=== PATIENT | male | born 1950 | race Two or more races ===

== ENCOUNTER 2016-11-11 06:10 | Day surgery (SDC) | payer OTHER, MEDICAID ==
[~2016-11-11] VITALS: Ht 167.6 cm; Wt 79.8 kg
[2016-11-11 06:47] VITALS: BP 174/78
[2016-11-11 07:04] LABS: CALCIUM 8.4 mg/dL (8.5-10.1); POTASSIUM SERUM 5.1 mmol/L (3.5-5.1)
[2016-11-11 07:07] LABS: CREATININE SERUM 14.5 mg/dL (0.7-1.3)
[2016-11-11 07:15] LABS: BASOPHIL % 0.9 % (0-2); PLATELET COUNT 288 x10^3mcL (130-400)
[2016-11-11 07:16] LABS: RED CELL DISTRIBUTION WIDTH 15.6 % (11.5-14.5)
[2016-11-11 12:30] VITALS: BP 134/65
== END 2016-11-11 11:45 | disposition home or self-care (01) ==
LOC: DS 06:10 → OR 07:30 → DS 11:45
PROVIDERS: Surgery
PROC: B5181ZA Fluoroscopy of Superior Vena Cava using Low Osmolar Contrast, Guidance (ICD-10-PCS; 2016-11-11)
PROC: 031 Upper Arteries, Bypass (ICD-10-PCS; principal; 2016-11-11 07:30)
DX: N18.6 End stage renal disease (principal); E11.9 Type 2 diabetes mellitus without complications; I10 Essential (primary) hypertension
CPT/HCPCS: 82962; A4301; C1768; J0690; J1170; J1644; J2001; J2250; J2405; J2704; J3010; J3490; J7030; Q0092

== ENCOUNTER 2018-11-22 08:16 | Day surgery (SDC) | payer OTHER, MEDICAID ==
[~2018-11-22] VITALS: Ht 167.6 cm; Wt 77.1 kg
[2018-11-22 09:07] VITALS: BP 183/76
[2018-11-22 09:24] LABS: BASOPHIL % 0.7 % (0-2); PLATELET COUNT 189 x10^3mcL (130-400)
[2018-11-22 09:25] LABS: RED CELL DISTRIBUTION WIDTH 14.6 % (11.5-14.5)
[2018-11-22 09:35] LABS: ALBUMIN 3.8 g/dL (3.4-5.0); BILIRUBIN TOTAL 0.52 mg/dL (0.20-1.00); CALCIUM 10.1 mg/dL (8.5-10.1); CARBON DIOXIDE 29.7 mmol/L (21-32); POTASSIUM SERUM 5.3 mmol/L (3.5-5.1)
[2018-11-22 09:38] LABS: CREATININE SERUM 10.8 mg/dL (0.7-1.3)
[2018-11-22 12:53] VITALS: BP 131/61
[2018-11-23 04:06] LABS: RAPID PLASMA REAGIN Non Reactive (Non Reactive)
== END 2018-11-22 12:40 | disposition home or self-care (01) ==
LOC: DS 08:16 → OR 10:00 → DS 12:40
PROVIDERS: Surgery
DX: Z45.2 Encounter for adjustment and management of vascular access device (principal); I82.C11 Acute embolism and thrombosis of right internal jugular vein; I82.290 Acute embolism and thrombosis of other thoracic veins; E11.22 Type 2 diabetes mellitus with diabetic chronic kidney disease; I12.0 Hypertensive chronic kidney disease with stage 5 chronic kidney disease or end stage renal disease; N18.6 End stage renal disease; D64.9 Anemia, unspecified; F41.9 Anxiety disorder, unspecified; Z99.2 Dependence on renal dialysis; Z79.01 Long term (current) use of anticoagulants; Z79.899 Other long term (current) drug therapy; Z98.49 Cataract extraction status, unspecified eye; Z98.890 Other specified postprocedural states; Z90.79 Acquired absence of other genital organ(s); Z85.46 Personal history of malignant neoplasm of prostate
CPT/HCPCS: 76937; A4301; J0360; J0690; J1644; J2001; J2250; J3010; J3490; J7030; Q0092; Q9967